=== PATIENT | female | born 1990 | race Caucasian/White ===

== ENCOUNTER → 2018-05-28 08:57 | Outpatient (CLI) | payer BC, SELFPAY ==
--- NOTE | 2018-05-28 09:01 | BI_ITS ---
MAMMOGRAPHY - BILATERAL DIAGNOSTIC REASON FOR EXAM: Female, 27 years old. Bilateral breast tenderness. PERTINENT HISTORY: Non-contributory. TECHNIQUE: Digital bilateral breast steve (3D mammographic acquisition) in the CC and MLO projections. 2-D mediolateral oblique (MLO) and craniocaudad (CC) views of both breasts were obtained. CAD: Full Field Digital Mammography with Computer Added Detection was performed. COMPARISON: None. Baseline examination. FINDINGS: Breast Composition: The breasts are extremely dense, which lowers the sensitivity of mammography. There are no dominant masses or suspicious calcifications. No other significant abnormalities are identified. BI/DIAG MAMM W/CAD, BILAT IMPRESSION: Negative diagnostic mammogram. The patient's history of bilateral breast tenderness, correlation with ultrasound is recommended ASSESSMENT CATEGORY: BIRADS Category 0: Incomplete. Need additional imaging evaluation. A letter regarding these results will be sent to the patient by the facility within 30 days. Approximately 10% of breast cancers are not detected by mammography. A normal mammogram should not delay biopsy of a clinically suspicious abnormality. Electronically Signed: Alfredo Cordero MD at 11:20 EDT Tel [phone], Service support ,
--- NOTE | 2018-05-28 09:03 | US_ITS ---
STUDY: ULTRASOUND BREAST - RIGHT REASON FOR EXAM: Female, 27 years old. Bilateral breast fullness. TECHNIQUE: Axial and longitudinal images of the RIGHT breast were performed with a high resolution ultrasound transducer. COMPARISON: Comparison is made with prior mammogram done earlier today. FINDINGS: RIGHT Breast: There is a 3 mm x 4 mm x 2 mm cyst at the 5:00 position of the breast at 3 cm from the nipple. Adjacent to this, is also evidence of a 4 mm x 5 mm x 2 mm cyst. IMPRESSION: 2 small cysts are seen in the right breast at the 5:00 position at 3 cm from the nipple. ASSESSMENT CATEGORY: BIRADS Category 2: Benign. A letter regarding these results will be sent to the patient by the facility within 30 days. Electronically Signed: Alfredo Cordero MD at 15:23 EDT Tel [phone], Service support , STUDY: ULTRASOUND BREAST - LEFT REASON FOR EXAM: Female, 27 years old. Bilateral breast lumpiness. TECHNIQUE: Axial and longitudinal images of the LEFT breast were performed with a high resolution ultrasound transducer. COMPARISON: Comparison is made with prior mammogram done earlier in the day. FINDINGS: LEFT Breast: There is a 7 mm x 5 mm x 4 mm well-defined hypoechoic nodule at the 11:00 position of the breast at 4 cm from the nipple. This most likely a small fibroadenoma. US/Breast Complete Bilateral IMPRESSION: 7 mm x 5 mm x 4 mm well-defined hypoechoic nodule at 11:00 position of the left breast at 4 cm from nipple. This most likely a small fibroadenoma although a tissue diagnosis recommended. ASSESSMENT CATEGORY: BIRADS Category 4: Suspicious - Biopsy Should Be Considered. A letter regarding these results will be sent to the patient by the facility within 30 days. Electronically Signed: Alfredo Cordero MD at 15:23 EDT Tel [phone], Service support ,
== END ==
PROVIDERS: Visit Provider Nurse Practitioner
DX: N60.01 Solitary cyst of right breast (principal); N60.02 Solitary cyst of left breast
CPT/HCPCS: 76641; 77062; 77066; G0279

== ENCOUNTER → 2018-06-23 12:42 | Outpatient (CLI) | payer BC, SELFPAY ==
--- NOTE | 2018-06-23 | BRBX_PTH ---
PATIENT: SYLVIE CHONG LOC: [facility] U#:[id number] AGE/SX: 34/F ROOM: RE06/23/[address]: Dr. Sakshi Rao MD : 1990 BED: DIS: SPEC #: [id number] RECD: 06/23/18 14:39 STATUS: TIFFANI REObinna #: [id number] TIFFANIE: 06/23/18 00:[address]: Sakshi Rao DEPT: SURGICAL PATHOLOGY RECD BY: Patricio Wood ENTERED: 06/23/18 14:39 SP TYPE: BREAST BX OTHR DR: NATHALIE Rojas Tissues: Left breast, NOS Procedures: Surgery Specimen Level IV HEADER OPERATION: Left breast biopsy PRE-OP DIAGNOSIS: Left breast mass POST-OP DIAGNOSIS: Left breast mass, probable fibroadenoma TISSUE SUBMITTED: Left breast mass ISCHEMIC TIME; 1 minute FIXATION TIME: 6 hours MICROSCOPIC DIAGNOSIS Left breast mass, needle core biopsy: Fibroadenoma. Mild fibrocystic change. No evidence of malignancy. AM:sangeeta 06/24/18 COMMENT Case has been reviewed in consultation with Dr. Davis who concurs with the above diagnosis. IDC:SJ MICROSCOPIC DESCRIPTION Slides are reviewed. GROSS DESCRIPTION Received is one container labeled with the patient name and designated left breast. The specimen consists of multiple irregular fragments of whalen-yellow fibroadipose tissue that in aggregate measure 2 x 0.6 x 0.1 cm. The specimen is totally submitted in one cassette. / SJ:sangeeta 06/23/18 TC: 1 CPT: 53131
--- NOTE | 2018-06-23 12:45 | US_ITS ---
MAMMOGRAPHY - UNILATERAL DIAGNOSTIC: LEFT BREAST REASON FOR EXAM: Female, 27 years old. Post clip placement. PERTINENT HISTORY: Non-contributory. Ultrasound-guided left breast biopsy. TECHNIQUE: Digital unilateral breast steve (3D mammographic acquisition) in the CC and MLO projections. 2-D mediolateral oblique (MLO) and craniocaudad (CC) views of both breasts were obtained. CAD: Full Field Digital Mammography with Computer Added Detection was performed. COMPARISON: Comparison is made with prior mammogram dated May 28, 2018. FINDINGS: Breast Composition: The breasts are extremely dense, which lowers the sensitivity of mammography. A tissue clip marker is seen in the upper midportion of the left breast. No other significant abnormalities are identified. US/US Breast Biopsy 1st Lesion IMPRESSION: A tissue clip marker is seen at the biopsy site. ASSESSMENT CATEGORY: BIRADS Category 2: Benign. A letter regarding these results will be sent to the patient by the facility within 30 days. Approximately 10% of breast cancers are not detected by mammography. A normal mammogram should not delay biopsy of a clinically suspicious abnormality. Electronically Signed: Alfredo Cordero MD at 14:21 EST Tel [phone], Service support ,
--- NOTE | 2018-06-23 13:21 | PCM.OP.BLANK ---
Operative Report Date of Procedure: 06/23/18 Procedure: ultrasound-guided core biopsy left breast Indications: 27 year-old female with hypoechoic nodule at 11:00 in the left breast four centimeters from the nipple. Risk benefits were discussed the patient and she elected to proceed with ultrasound guided core biopsy with clip placement Description of procedure: Patient was brought into the ultrasound room in the left breast was marked. A timeout was completed verifying correct patient, procedure, site, specially, prior to beginning procedure. The left breast was prepped and draped in usual sterile fashion and using local anesthesia was obtained with 1% lidocaine with epi. The lesion was located with the ultrasound. Small incision was made with 11 blade to introduced the mammotome through the skin. Under ultrasound guidance multiple core samples were obtained using then 13-gauge mammotome and sent in formalin for pathology. The mammotome mammostar clip was then deployed into the biopsy cavity under ultrasound guidance and a picture was taken. Upon completion procedure hemostasis was obtained and a Steri-Strip and OpSite were placed. Patient was then taken to the mammography suite for clip verification. The clip was verified. The patient tolerated the procedure well and was discharged from the breast imaging department good condition. complications: none
== END ==
PROVIDERS: Family Provider Nurse Practitioner; PCP Nurse Practitioner; Referring Provider Surgery; Visit Provider Surgery
DX: N63.20 Unspecified lump in the left breast, unspecified quadrant (principal)
CPT/HCPCS: 19083; 77065; 88305